=== PATIENT | male | born 1950 | race Caucasian/White ===

== ENCOUNTER 2023-12-19 16:22 | Outpatient (CLI) | payer MEDICARE, MEDICAID ==
[~2023-12-19 16:22] MED LIST: AMLO5TAB10 PO; ASCO-482 PO; ASPI-611 PO; ATOR40TA PO; CLOP75TA33 PO; ERGO400C2 PO; FURO40TA4 PO; GABA-532 PO; INSU100V64 SQ; IRBE150T51 PO; LISI1TAB53 PO; METF500T PO; NPH,100V SQ; NPH,100V2 SQ; TEST200V33 IM; VITA-290 PO; VITE1000C PO
== END 2023-12-19 23:59 | disposition home or self-care (01) ==
LOC: RAD 16:22
PROVIDERS: ATTEND Nurse Practitioner Primary Care
DX: M47.812 Spondylosis without myelopathy or radiculopathy, cervical region (principal); M54.2 Cervicalgia; G62.9 Polyneuropathy, unspecified
CPT/HCPCS: 72040

== ENCOUNTER 2024-07-27 10:33 | Day surgery (SDC) | payer MEDICARE, MEDICAID ==
[2024-07-23 12:54] LABS: BASOPHILS % (AUTO) 0.4 % (0-1); EOSINOPHILS # (AUTO) 0.2 X10'3 (0-0.9); EOSINOPHILS % (AUTO) 2.1 % (0-6); HEMATOCRIT 41.3 % (42.0-52.0); HEMOGLOBIN 14.2 g/dl (14.0-17.9); LYMPHOCYTES # (AUTO) 1.7 X10'3 (1.1-4.8); LYMPHOCYTES % (AUTO) 19.4 % (21-51); MEAN CORPUSCULAR HEMOGLOBIN 31.2 PG (27.0-31.0); MEAN CORPUSCULAR HGB CONC 34.4 g/dL (33.0-36.5); MEAN CORPUSCULAR VOLUME 90.6 FL (78-98); MEAN PLATELET VOLUME 8.3 FL (7.4-10.4); MONOCYTES # (AUTO) 0.9 X10'3 (0-0.9); MONOCYTES % (AUTO) 10.1 % (2-12); NEUTROPHILS # (AUTO) 5.9 X10'3 (1.8-7.7); PLATELET COUNT 262 X10'3 (140-440); RED BLOOD COUNT 4.56 X10'6 (4.70-6.10); RED CELL DISTRIBUTION WIDTH 13.1 % (11.5-14.5); WHITE BLOOD COUNT 8.6 X10'3 (4.5-11.0)
[2024-07-23 13:02] LABS: APTT 22 SECONDS (22-32); INR 0.9 INR; PROTHROMBIN TIME 9.8 SECONDS (9.0-12.0)
[2024-07-23 13:04] LABS: ALBUMIN 3.8 G/DL (3.4-5.0); ANION GAP 9 (8-16); BLOOD UREA NITROGEN 25 MG/DL (7-18); BUN/CREATININE RATIO 21.7 (10.0-20.0); CALCIUM 8.7 MG/DL (8.5-10.1); CHLORIDE 100 MMOL/L (99-107); CHOL/HDL RATIO 3.4 (0.00-4.99); CHOLESTEROL 174 MG/DL (0-200); CREATININE 1.15 MG/DL (0.60-1.10); GLUCOSE 118 MG/DL (70-104); HDL CHOLESTEROL 51 MG/DL (35-60); LDL CHOLESTEROL 97 MG/DL (50-100); POTASSIUM 3.5 MMOL/L (3.5-5.1); SODIUM 141 MMOL/L (135-145); TOTAL CARBON DIOXIDE 32.1 MMOL/L (24-32); TRIGLYCERIDES 199 MG/DL (20-135); eGFR 63 ML/MIN
[~2024-07-27] VITALS: Ht 172.7 cm; Wt 145.3 kg
[2024-07-27] VITALS (8 sets, daily range): BP systolic 113–152; BP diastolic 56–78; PULSE 57–70; RESP 10–12; TEMP 98.4; O2SAT 95–98
[2024-07-27] MEDS ORDERED: GABA-535 PO (11:05)
[2024-07-27] MEDS ORDERED: NITR0.4T48 (11:07)
[2024-07-27] MEDS ORDERED: SEMA2PEN (11:07)
[2024-07-27] MEDS ORDERED: LIDOcaine 1% (10mg/ml) 2ml vial ONE (11:57)
[2024-07-27] MEDS ORDERED: midazolam 1 mg/ML 2ml injection ONE (11:57)
[2024-07-27] MEDS ORDERED: fentaNYL/PF 50MCG/1 ML 2ML syringe ONE (11:57)
[2024-07-27] MEDS ORDERED: verapamil 2.5 mg/ml inj IV ONE (11:57)
[2024-07-27] MEDS ORDERED: heparin 1,000unit/ml 10ml vial 10 ML ONE (11:58)
[2024-07-27] MEDS ORDERED: iohexol 350MG/ML 100ml bottle IV ONE (11:58)
[2024-07-27] MEDS ORDERED: nitroGLYCERIN 500mcg/5mL D5W 5 ML IV ONE (12:01)
[2024-07-27] MEDS: LORazepam 0.5 MG tablet PO PRN (12:34)
[2024-07-27] MEDS: diphenhydrAMINE 25mg capsule PO PRN (12:34)
[2024-07-27] MEDS ORDERED: LIDOcaine 1% 30ml preserv. free vial ONE (13:49)
[2024-07-27] MEDS ORDERED: HYDROcodone/acetaminophen 10/325mg tab PO PRN (14:40)
[2024-07-27] MEDS ORDERED: HYDROcodone/acetaminophen 5mg/325mg tablet PO PRN (14:40)
== END 2024-07-27 16:33 | disposition home or self-care (01) ==
LOC: SSTAY O 10:33
PROVIDERS: ATTEND Internal Medicine Interventional Cardiology
DX: R94.39 Abnormal result of other cardiovascular function study (principal); I25.118 Atherosclerotic heart disease of native coronary artery with other forms of angina pectoris; I45.2 Bifascicular block; R94.31 Abnormal electrocardiogram [ECG] [EKG]; I12.9 Hypertensive chronic kidney disease with stage 1 through stage 4 chronic kidney disease, or unspecified chronic kidney disease; E11.22 Type 2 diabetes mellitus with diabetic chronic kidney disease; N18.9 Chronic kidney disease, unspecified; E78.00 Pure hypercholesterolemia, unspecified; E66.01 Morbid (severe) obesity due to excess calories; G47.33 Obstructive sleep apnea (adult) (pediatric); I35.0 Nonrheumatic aortic (valve) stenosis; I42.9 Cardiomyopathy, unspecified; Z79.4 Long term (current) use of insulin; Z79.82 Long term (current) use of aspirin; Z79.84 Long term (current) use of oral hypoglycemic drugs; Z79.899 Other long term (current) drug therapy; Z95.5 Presence of coronary angioplasty implant and graft; Z68.42 Body mass index [BMI] 45.0-49.9, adult
CPT/HCPCS: 36415; 80048; 80061; 82948; 85025; 85610; 85730; 93005; 93458; 99152; A6258; A6402; C1760; C1894; J1644; J2003; J2250; J3010; J3490; J7030; Q0163; Q9967; Z7610; 99153; C1769

== ENCOUNTER 2025-08-21 13:18 | Emergency (ER) | payer MEDICARE, MEDICAID ==
[~2025-08-21] VITALS: Ht 180.3 cm; Wt 131.0 kg
[~2025-08-21 13:18] MED LIST changes: -AMLO5TAB10 PO; -CLOP75TA33 PO; -GABA-532 PO; +GABA-535 PO; -INSU100V64 SQ; +NITR0.4T48; +SEMA2PEN; +[UNRECOGNIZED DRUG - CODE] SQ
[2025-08-21 13:32] VITALS: BP 194/86; PULSE 84; RESP 15; TEMP 98.6; O2SAT 99
--- NOTE | 2025-08-21 14:10 | Physician Documentation ---
History of Present Illness ~ Chief Complaint: Foreign body Stated Complaint: POSS BROKEN NEEDLE Time Seen by MD: 13:35 OK to notify your PCP?: Yes Source: patient Mode of Arrival: POV Exam Limitations: no limitations HPI This is a 74-year-old male who comes in concerned that a insulin needle may have broken off under the skin in his right lower abdomen. He states he has been using needles to save money and after using a needle he states with the metal tip was gone. He is not sure if they that has retained under his skin. He denies any tenderness or firmness to palpation of the area Medication Reconciliation Allergies: Coded Allergies: No Known Allergies (Unverified , 08/21/25) Scheduled Ascorbic Acid (Vitamin C), 1 CAP PO DAILY, (Reported) Aspirin (Aspir 81), 1 TABLET PO DAILY, (Reported) Atorvastatin Calcium* (Lipitor*), 1 TABLET PO HS, (Reported) Ergocalciferol (Vitamin D), 1 CAP PO DAILY, (Reported) Furosemide 40 MG (Lasix), 1-2 TAB PO DAILY, (Reported) Gabapentin (Gabapentin), 5 CAP PO Q8H, (Reported) Insulin Regular, Human* (Humulin R 3 Ml *), 20-40 UNITS SQ BID, (Reported) Irbesartan* (Avapro*), 300 MG PO DAILY, (Reported) Lisinopril/Hydrochlorothiazide (Lisinopril-Hctz 20-25 mg Tab), 1 TABLET PO DAILY, (Reported) Metformin Hcl* (Glucophage*), 2 TAB PO DAILY, (Reported) Nph, Human Insulin Isophane (Novolin N), 20-40 UNIT SQ BID, (Reported) Nph, Human Insulin Isophane (Humulin N), 50 UNIT SQ BID, (Reported) Testosterone Cypionate (TESTOSTERONE CYPIONATE 200mg/ml 10ml vial), 1 IM Q2W, (Reported) Vitamin B Complex (Vitamin B Complex), 1 EACH PO DAILY, (Reported) Vitamin E (VITAMIN E capsule), 1 CAP PO DAILY, (Reported) Miscellaneous Medications Nitroglycerin (Nitroglycerin), (Reported) Semaglutide (Ozempic), (Reported) Physical Exam Vital Signs: Temperature: 98.6, Source: Temporal, Heart Rate: 84, Respiratory Rate: 15, BP: 194/86, Pulse Oximetry: 99, Weight: 131.000 Pulse Oximetry Reflects: adequate oxygenation General Appearance: alert, WD/WN, no apparent distress Skin To inspection of the outer skin of the right lower quadrant of the abdomen no obvious break in the skin. The patient points to an area where he believes there might be a retained foreign body. There was no tenderness or firmness to palpation of the area. No rash. No signs of infection. Progress Results/Orders Results/Orders Orders - ORESTES STEPHENS Abdomen,Single View(Kub) (08/21/25 13:55) Completed Orders - ORESTES STEPHENS Abdomen,Single View(Kub) (08/21/25 13:55) Vital Signs 08/21/25 13:32 Temp 98.6 Pulse 84 Resp 15 B/P (MAP) 194/86 Pulse Ox 99 Medical Decision Making Additional information obtaine: N/A Findings I told the patient that is there was not much to worry about if there was a retained cutaneous foreign body as it is very thin in his small. He asked that we performed an x-ray to spreading confirm if there was something retained. X- rays did not show evidence of the metallic foreign body in the cutaneous tissue. I discussed this with the patient and we will discharge him home. Differential Dx:Considerations: Include: Abscess, AIDS/HIV, Anthrax (cutaneous), Atopic dermatitis, Candidiasis, Contact dermatitis, Drug reaction, Erythema multiforme, Erysipelas, Gangrene, Herpes zoster, Herpes simplex, Hidradenitis suppurativa, Impetigo, Intertrigo, Lymes disease, Molluscum contagiosum, Osteomyelitis, Pediculosis, Pityriasis rosea, Psoriaisis, RMSF, Rosacea, Scabies, Scarlet fever, Tinea, Urticaria, Varicella, Viral exanthema, Other Additional Comment Cutaneous foreign body. Retained needle. Well adult exam Departure Disposition: HOME / SELF CARE / HOMELESS Impression: Primary Impression: Insulin administered by patient Condition: Stable Discharge Instructions: Skin Foreign Body Additional Instructions: The x-rays performed today did not show evidence of the metallic needle in your skin. Follow up with the your primary care physician for recheck in the next one or two days and return to the ER for any worsening or concerning symptoms Referrals: NO PRIMARY CARE PROVIDER (PCP) Signature Scribe Signature: No scribe Attestation: The note accurately reflects work and decisions made by me.Orestes SEPULVEDA 08/21/25 14:10 ORESTES STEPHENS Aug 21, 2025 14:10
--- NOTE | 2025-08-21 14:33 | RADIOLOGY REPORT ---
EXAM: DI ABDOMEN,SINGLE VIEW(KUB) HISTORY:: Possible cutaneous foreign body COMPARISON: None TECHNIQUE:: Supine view of the abdomen FINDINGS/IMPRESSION: Nonobstructive bowel gas pattern noted. There is no evidence for pneumoperitoneum. No abnormal calcifications noted. Mild degenerative change of bilateral hips.
== END 2025-08-21 14:19 | disposition home or self-care (01) ==
LOC: ER 13:19
DX: Z00.00 Encounter for general adult medical examination without abnormal findings (principal); Z79.899 Other long term (current) drug therapy; Z79.82 Long term (current) use of aspirin
CPT/HCPCS: 74018; 99283